=== PATIENT | female | born 1985 | race Caucasian/White ===

== ENCOUNTER 2016-08-05 11:32 | Outpatient (CLI) | payer OTHER, BC | END 2016-08-05 23:59 | disposition critical access hospital (66) | DX: M54.2 Cervicalgia (principal); M79.662 Pain in left lower leg; V44.5XXA Car driver injured in collision with heavy transport vehicle or bus in traffic accident, initial encounter; Y92.481 Parking lot as the place of occurrence of the external cause | CPT/HCPCS: A0425; A0429 ==

== ENCOUNTER 2016-08-05 11:50 | Emergency (ER) | payer OTHER, BC ==
[2016-08-05] MEDS ORDERED: HYDROcod/ACETAM 5/325 MG TABLET PO STA (12:15)
[2016-08-05] MEDS ORDERED: HYDROcod/ACETAM 5/325 MG TABLET ONE (12:18)
== END 2016-08-05 13:36 | disposition home or self-care (01) ==
DX: S13.9XXA Sprain of joints and ligaments of unspecified parts of neck, initial encounter (principal); S80.12XA Contusion of left lower leg, initial encounter; R03.0 Elevated blood-pressure reading, without diagnosis of hypertension; V44.5XXA Car driver injured in collision with heavy transport vehicle or bus in traffic accident, initial encounter; Y93.9 Activity, unspecified; Y92.410 Unspecified street and highway as the place of occurrence of the external cause; Y99.9 Unspecified external cause status
CPT/HCPCS: 72125; 73590; 99283; A9270

== ENCOUNTER 2018-08-23 21:50 | Outpatient (CLI) | payer BC | END 2018-08-23 21:51 | disposition critical access hospital (66) | LOC: EMS 21:50 | PROVIDERS: ATTEND Surgery | DX: F41.0 Panic disorder [episodic paroxysmal anxiety] (principal); M25.532 Pain in left wrist | CPT/HCPCS: A0425; A0429 ==

== ENCOUNTER 2018-08-23 22:12 | Emergency (ER) | payer BC, OTHER ==
[2018-08-23] MEDS ORDERED: ACETAMINOPHEN 325 MG TABLET PO STA (22:55)
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
[2018-08-24 01:26] VITALS: BP 128/99
== END 2018-08-24 01:00 | disposition home or self-care (01) ==
LOC: EDSEX → EDUNIT# → ED 22:12
DX: S63.92XA Sprain of unspecified part of left wrist and hand, initial encounter (principal); Y04.8XXA Assault by other bodily force, initial encounter
CPT/HCPCS: 99282; 99283; A9270